=== PATIENT | female | born 1980 | race Caucasian/White ===

== ENCOUNTER 2021-07-24 00:56 | Day surgery (SDC) | payer OTHER, SELFPAY ==
[2021-07-16 11:22] VITALS: BMI 28.3
--- NOTE | 2021-07-16 11:33 | PC.NURSE ---
Report to the Outpatient Waiting Room, entrance under the green pavilion located off [facility], at time 0600 on date 07/24/21. OR Time: 0730. - You and your visitor will be asked a series of questions to screen for COVID 19 for your protection. - A mask is required within the hospital. One visitor will be allowed to accompany the patient into the hospital. Patients visitor will be instructed to remain with patient at all times or leave the building. We will allow the visitor to come back to the postoperative area when patient is ready. Preoperative COVID Testing Requirements: No COVID Test needed if: (proof is required; if not received patient will have Rapid Test prior to entry) - Patient has received COVID Vaccine at least 14 days prior to procedure date or - Patient has positive COVID test result within last 90 days of surgery date. COVID Test needed if above criteria is not met Patients may have clear liquids (water, carbonated beverages, clear teas, apple juice) until 3 hours prior to surgery with a maximum of 20 ounces. - No food from midnight until time of surgery Take the following medications with a SIP of water the morning of surgery: NONE Medications to discontinue per physician: N/A Date to take last dose: N/A Please no make-up, nail guinean, hairspray, perfume, deodorant, or body powder the day of surgery. No jewelry (including any body piercings) or valuables the day of surgery, leave them at home. Please take a shower or bath the night before, or the morning of, surgery with an antibacterial soap. Wear comfortable, loose fitting clothing. - Jewelry must be removed prior to entering the operating room. Rings and piercings that are not removed may be cut off. - The hospital will not accept responsibility for valuables. - Please leave all valuables, including medications, at home the day of surgery. If you are going home after surgery, a licensed patrol driver must drive you home. - NO public transportation without another adult. - We recommend that an adult stay with you for 24 hours following discharge. - We also recommend that you do not drive, make important decision, drink alcoholic beverages, or take any drugs that were not prescribed by your health care provider for at least 24 hours after your discharge time. Follow any additional instructions given to you from your surgeon. Telephone instructions given to CARROLL MALIK and asked if any additional questions and then verbalized understanding. Patient advised to call surgeon office or pre surgery nurse liaison [phone] if any additional questions.
[2021-07-24] VITALS (11 sets, daily range): BP systolic 107–151; BP diastolic 52–76; PULSE 50–84; RESP 16–20; TEMP 36.2–36.7; O2SAT 97–100
--- NOTE | 2021-07-24 05:49 | ECG_ITS ---
Measurements Intervals [place] Rate: 50 P: 17 AK: 142 QRS: 4 QRSD: 89 T: -21 QT: 444 QTc: 407 Interpretive Statements SINUS BRADYCARDIA NO PREVIOUS ECG AVAILABLE FOR COMPARISON Electronically Signed On 07-24-2021 20:48:49 CDT by Karen Maloney M.D.
[2021-07-24] MEDS: LACTATED RINGERS 1,000 ML 30 ML IV CONT ×2 (06:25→11:52)
[2021-07-24 06:46] LABS: Hematocrit 33.6 % (37.0-47.0); Hemoglobin 10.4 g/dL (12.0-15.0)
[2021-07-24 06:54] LABS: Urine Cotinine NEGATIVE
--- NOTE | 2021-07-24 06:56 | WPDHPUPDATE1 ---
History and Physical Update Update Date/Time: 07/24/21 06:56 History and Physical has been reviewed, including an updated exam of the patient. There are NO changes in the patient's condition. Risks, benefits, and alternatives have been discussed and questions answered. Patient agrees to proceed with procedure.
--- NOTE | 2021-07-24 07:08 | W.PM.PROC2 ---
Procedure Note - Detailed Date of Procedure 07/24/21 Pre-op Diagnosis skin laxity Post-op Diagnosis Same Procedure Performed Progressive tension abdominoplasty with suction lipectomy Surgeon Wai Hoskins MD Anesthesia General Findings Tissue removed 2512 grams Lipoaspirate 1500cc Description of Procedure They are here today for abdominoplasty. Previously and again today the risks, benefits, alternatives were discussed in extensive detail. I wanted them to be very realistic about the risks involved as well as expectations. We discussed aftercare and what to monitor for. I was very upfront about the risks of wound breakdown leading to loss of skin, open wounds, and need for additional procedures with permanent abdominal deformity. We discussed DVT/PE risks and management. Made sure answered all of their questions to their satisfaction today and consent was obtained. They were marked in the preoperative holding area with their verification. The patient was taken to the operating room placed supine on the operating table. Anesthesia was provided by anesthesiology. A Gilbert catheter was started. They were prepped and draped in a standard sterile fashion. A surgical time-out was taken. I placed the patient in a flexed position to verify the upper and lower markings would reach. I then placed supine. A thorough abdominal examination was completed. Stab incisions were made and tumescent solution infiltrated. Suction lipectomy was completed based on S.A.F.E. technique based on pre-operative planning, intraoperative observations, and rolling pinch which was in full agreement. This was completed with a 5mm basket cannula. Patient was turned to bilateral lateral decubitus positions during the procedure to optimize outcome with care taken during the turns / positioning. A 10 blade was used to make the upper incision. I continued dissection down to the level of fascia. Elevated just what was necessary for repair of the diastasis. I then again flexed the bed to verify the upper skin flap would reach the lower markings without tension. Once verified I placed her supine once again and a 10 blade used to make the lower incision. I elevated up to level the umbilicus and left the umbilicus intact on a well-vascularized stalk. The intervening tissue was removed. A 2 mm blunt cannula with 0.5% bupivicaine was injected deep to the fascia bilaterally. I plicated the diastasis recti using 0 PDO stratafix barbed suture. This was in 2 separate layers using 2 separate sutures as well. I repaired around the umbilicus leaving plenty of room for well-vascularized stalk of the umbilicus with 2-0 PDS. I also repaired lateral to the rectus using two layers of 0 PDO stratafix. The patient was flexed and starting from superior to inferior began plication using 2-0 Vicryl to obliterate all space in a standard progressive tension fashion. At the umbilicus I marked out the location of the skin and inset this with 3-0 Monocryl and 4-0 Vicryl. I continued the remainder of the plication using 2-0 Vicryl until I reached my lower planned scar line. I trimmed any excess skin of the upper flap making sure this was a tension-free closure. I then approximated using a 3 point suture with 2-0 Vicryl followed by 3-0 stratafix ,running subcuticular 4-0 Monocryl, and tissue glue. Fluffs and an abdominal binder were placed. The patient was transferred to the bed in a flexed position. Awoken and taken to the PACU without difficulty. All instrument and sponge counts were correct at the end of the case. Estimated Blood Loss 75 Drains No Packing No Pathology None sent Complications No immediate complications Condition Stable Disposition PACU
--- NOTE | 2021-07-24 07:20 | P.PNAN_ITS ---
Anes - Initial Pre Proc Eval Procedure: Operation Date: 07/24/21 07:30 Proposed Procedures p Abdominoplasty - Wai Hoskins MD s Liposuction of Abdomen - Wai Hoskins MD Date/Time: 07/24/21 07:20 Surgeon: Wai Hoskins MD Pre Op Diagnosis: skin laxity Patient Data Age: 40 Gender: F Height: 1.65 m Weight: 76.65 kg Last Vital Signs Temp 98.0 F 07/24/21 06:00 Pulse 50 L 07/24/21 06:00 Resp 20 07/24/21 06:00 BP 148/71 H 07/24/21 06:00 Pulse Ox 100 07/24/21 06:00 Allergies Allergy/AdvReac Type Severity Reaction Status Date / Time No Known Allergies Allergy Unverified 07/24/21 06:00 Home Medications Medication Instructions Recorded Confirmed Type docusate sodium 100 mg capsule 100 mg PO DAILY #14 cap 07/08/21 07/24/21 Rx ondansetron 4 mg disintegrating 4 mg PO Q8H #21 tablet 07/08/21 07/24/21 Rx tablet carisoprodol 350 mg tablet 350 mg PO TID PRN #21 tablet 07/09/21 07/24/21 Rx oxycodone-acetaminophen 5 mg-325 1 tablet PO Q6H PRN #30 tablet 07/09/21 07/24/21 Rx mg tablet Laboratory Tests 07/24/21 07/24/21 06:13 06:25 Hgb 10.4 g/dL L g/dL (12.0-15.0) Hct 33.6 % L % (37.0-47.0) Cotinine Negative Patient hx anesthesia problems: none Family hx anesthesia problems: none Results Review: All pre-operative results and documents have been reviewed as part of the pre-operative evaluation. [facility] Past Medical History Medical History (Updated 07/23/21 @ 14:32 by Abdullahi Plasencia MD) Overweight (BMI 25.0-29.9) Surgical History Surgical History History of eye surgery Family History Family History Other Hypertension Social History Social History Smoking status: Never smoker Alcohol intake: never Substance use: never Substance use type: does not use Living arrangements: with family Spiritual care concerns: No Anes - Eval Final PreProcedure Day of Procedure 07/24/21 07:20 Patient weight: overweight Heart: regular rate and rhythm Lungs: clear to auscultation Airway: Mallampati scale class II Neurological: alert and oriented Last oral intake: >/= 8 hours ASA classification: II Emergent: no Anesthetic plan: proceed Anesthesia type and monitoring: general ETT and standard monitoring Results Review: All pre-operative results and documents have been reviewed as part of the pre-operative evaluation. Informed Consent: The patient's anesthetic plan and its attendant risks and benefits were discussed with the patient/family/POA. Questions were solicited and answers provided to the satisfaction of the patient/family/POA.
--- NOTE | 2021-07-24 07:22 | SUR.PREOP ---
0625-SPOKE WITH GRISEL IN CARDIOLOGY RE: EKG-MADE AWARE EKG NEEDED BY 0650-PRIOR TO SURGEON ARRIVAL FOR MARKING. 0705-CARDIOLOGY HAS NOT ARRIVED AND UNABLE TO REACH PER PHONE OPTIONS. 0715-CONTINUE TO BE UNABLE TO REACH CARDIOLOGY AFTER MULTIPLE TRIES OVER SEVERAL MINUTES. 0718-DR. MANZANARES AWARE OF ABOVE. ALSO AWARE OF H/H RESULTS. 0722-CONCRETE TECHNICIAN HERE TO OBTAIN EKG.
[2021-07-24] MEDS: LACTATED RINGERS IRRIG 1,000 ML, LIDOCAINE HCL 1% LOCAL INJ 50 ML, EPINEPHrine HCL INJ ... INFILTRATE (07:30)
[2021-07-24] MEDS: ceFAZolin 2 GM/D5W 50 ML 2 GM/50 ML BAG IVPB (07:30)
[2021-07-24] MEDS: TRANEXAMIC ACID 1,000MG/ISO100 1,000 MG/100 ML BAG 200 MG IVPB (07:45)
[2021-07-24] MEDS: ONDANSETRON INJ 4 MG/2 ML VIAL IV PUSH (13:15)
[2021-07-24] MEDS: oxyCODONE/ACETAMINOPHEN (*CRX) 5-325 MG TABLET 1 TABLET PO (13:39)
[2021-07-24] MEDS: SCOPOLAMINE 1.5 MG PATCH TRANSDERM (14:00)
[2021-07-24] MEDS: diphenhydrAMINE HCl INJ 50 MG/ML VIAL 25 MG IV PUSH (14:00)
== END 2021-07-24 14:50 | disposition home or self-care (01) ==
PROVIDERS: Anesthesiology; Visit Provider Surgery Plastic and Reconstructive Surgery
PROC: (CPT 15830; principal; 2021-07-24 07:30)
PROC: (CPT 15877; 2021-07-24 07:30)
DX: Z41.1 Encounter for cosmetic surgery (principal); L57.4 Cutis laxa senilis
CPT/HCPCS: 15830; 15847; 15877; 80307; 85014; 85018; 93005; A9270; J0171; J0690; J1100; J1170; J1200; J2250; J2405; J2704; J2710; J3010; J7120

== ENCOUNTER 2022-11-06 01:14 | Day surgery (SDC) | payer OTHER, SELFPAY ==
[2022-10-28 13:00] VITALS: BMI 28.8
--- NOTE | 2022-10-28 13:04 | PC.NURSE ---
Report to the Outpatient Waiting Room, entrance under the green pavilion located off [facility], at time 0900 on date 11/06/22. Planned Procedure Time: 1100. Time changes happen often and if your time is changed the preop area will call you the afternoon before. - You and your visitor will be asked to self-screen and do not enter if you have any COVID symptoms. - A mask is optional within the hospital at this time. Patients may have clear liquids (water, carbonated beverages, clear teas, apple juice) until 3 hours prior to surgery with a maximum of 20 ounces. - No food from midnight until time of surgery Take the following medications with a SIP of water the morning of surgery: LEXAPRO, CONTROL PILL DO NOT STOP ANY OF YOUR OTHER PRESCRIPTION MEDICATIONS PRIOR TO SURGERY ?EXCEPT THE FOLLOWING Medications to discontinue per physician: VITAMINS/SUPPLEMENTS Date to take last dose: 11/02/22 Please no make-up, nail icelandic, hairspray, perfume, deodorant, or body powder the day of surgery. No jewelry (including any body piercings) or valuables the day of surgery, leave them at home. Please take a shower or bath the night before, or the morning of, surgery with an antibacterial soap. Wear comfortable, loose fitting clothing. - Jewelry must be removed prior to entering the operating room. Rings and piercings that are not removed may be cut off. - The hospital will not accept responsibility for valuables. - Please leave all valuables, including medications, at home the day of surgery. If you are going home after surgery, a licensed special events driver must drive you home. - NO public transportation without another adult if you receive anesthesia. - We recommend that an adult stay with you for 24 hours following discharge. - We also recommend that you do not drive, make important decision, drink alcoholic beverages, or take any drugs that were not prescribed by your health care provider for at least 24 hours after your discharge time. Follow any additional instructions given to you from your surgeon. If you or anyone in your household have experienced Covid symptoms in the past week, please notify your surgeon or the nurse liaison at the phone number below for possible testing. Telephone instructions given to PT - CARROLL MALIK and asked if any additional questions and then verbalized understanding. Patient advised to call surgeon office or pre surgery nurse liaison [phone] if any additional questions.
[2022-11-06] VITALS (11 sets, daily range): BP systolic 102–161; BP diastolic 56–95; PULSE 62–98; RESP 10–16; TEMP 36.3–36.4; O2SAT 99–100; BMI 29.7
[2022-11-06 10:13] LABS: Urine Cotinine NEGATIVE
--- NOTE | 2022-11-06 10:29 | WPDHPUPDATE1 ---
History and Physical Update Update Date/Time: 11/06/22 10:29 History and Physical has been reviewed, including an updated exam of the patient. There are NO changes in the patient's condition. Risks, benefits, and alternatives have been discussed and questions answered. Patient agrees to proceed with procedure.
--- NOTE | 2022-11-06 10:34 | P.OP_ITS ---
Procedure Note - Detailed Date of Procedure 11/06/22 Pre-op Diagnosis breast ptosis Post-op Diagnosis Same Procedure Performed Bilateral breast mastopexy with Galaflex and fat grafting Surgeon Wai Hoskins MD Anesthesia General Findings Bilateral inverted T superior medial pedicle Bilateral fat grafting 400 cc (200 cc per breast) Description of Procedure She is here today for the above. Previously and again today the risks, benefits, alternatives were discussed in extensive detail. I wanted her to be very realistic about the risks involved as well as expectations. We discussed aftercare and what to monitor for. Made sure answered all of her questions to her satisfaction today and consent was obtained. Marked in the preoperative holding area with their verification. Anesthesia was provided by anesthesiology. She was placed prone on the operating room table with care taken to protect during positioning. A surgical time-out was taken. She was prepped and draped in a standard sterile fashion. 18 guage was utilized to make stab locations. Infiltrated with a tumescent solution. Once adequate time for hemostasis a 3mm multihole fat grafting cannula was utilized to completed suction lipectomy based on pre-operative planning to a closed gravity separation device. One complete the patient was placed supine and prepped and draped again in a standard sterile fashion. Eleven blade was utilized to make a stab incision and infiltrated with low volume tumescent solution. The breast was tailor tacked into place. I tailor tacked the breast into position. Placed her in a sitting position. Verified the nipple-areolar location based on preoperative planning as well as intraoperative observations and measurements in full agreement. She was placed supine. I de-epithelialized the pedicle. I then de-epithelialized the inferior breast tissue to create an autoaugmentation flap based on intercostal sanitary engineering teacher. I elevated medial and lateral tissue flaps as well for planned closure. The autoaugmentation flap was sutured to the chest wall with 2-0 PDS. This was tailor tacked into position and she was placed in a sitting position. The adipose tissue had clearly seperated and was re-injected with a 3mm cannula in multiple plans / passes on power in each breast for the volumes above. Jasmyne were removed to place Galalfex. Galaflex had been soaking on the back table and was trimmed and sutured into placed with 2-0 Vicryl. I closed along the IMF with 2-0 Stratafix. Along the vertical with 2-0 PDS. I closed around the Vinny with 3-0 strata fix. 3-0 Monocryl along the vertical. 3-0 Stratafix along the IMF. I finally closed everything with running subcuticular 4-0 Monocryl and tissue glue. Fluffs, surgical bra, and compression were placed. Estimated Blood Loss 125 Drains No Packing No Pathology None sent Complications No immediate complications Condition Stable Disposition PACU
[2022-11-06] MEDS: LACTATED RINGERS 1,000 ML 30 ML IV CONT ×3 (10:42→17:15)
--- NOTE | 2022-11-06 10:46 | P.PNAN_ITS ---
Anes - Initial Pre Proc Eval Procedure: Operation Date: 11/06/22 11:00 Proposed Procedures p Bilateral Breast Mastopexy with GalaFlex - Wai Hoskins MD s Bilateral Breast Fat Grafting - Wai Hoskins MD Date/Time: 11/06/22 10:46 Surgeon: Wai Hoskins MD Pre Op Diagnosis: breast ptosis Patient Data Age: 42 Gender: F Height: 1.63 m Weight: 78.5 kg Last Vital Signs Temp 36.4 C 11/06/22 08:58 Pulse 62 11/06/22 08:58 Resp 16 11/06/22 08:58 BP 112/78 11/06/22 10:35 Pulse Ox 100 11/06/22 08:58 O2 Del Method Room Air 11/06/22 08:58 Allergies Allergy/AdvReac Type Severity Reaction Status Date / Time No Known Allergies Allergy Unverified 11/06/22 10:31 Home Medications Medication Instructions Recorded Confirmed Type drospirenone (contraceptive) 4 mg 1 tablet PO DAILY 10/28/22 11/06/22 History (28) tablet escitalopram oxalate 10 mg tablet 10 mg PO DAILY 10/28/22 11/06/22 History (Lexapro) multivitamin 1 tablet PO DAILY 10/28/22 11/06/22 History trazodone 50 mg tablet 25 mg PO HS 10/28/22 11/06/22 History Laboratory Tests 11/06/22 09:15 Cotinine Negative Patient hx anesthesia problems: post op nausea/vomiting Family hx anesthesia problems: none Results Review: All pre-operative results and documents have been reviewed as part of the pre- operative evaluation. [facility] Past Medical History Medical History Overweight (BMI 25.0-29.9) Surgical History Surgical History History of eye surgery Family History Family History Other Hypertension Social History Social History Smoking status: Never smoker Alcohol intake: never Substance use: never Substance use type: does not use Living arrangements: with family Spiritual care concerns: No Anes - Eval Final PreProcedure Day of Procedure 11/06/22 10:46 Patient weight: overweight Heart: regular rate and rhythm Lungs: clear to auscultation Airway: Mallampati scale Neurological: alert and oriented Last oral intake: >/= 8 hours ASA classification: II Emergent: no Anesthetic plan: proceed Anesthesia type and monitoring: general LMA and standard monitoring Results Review: All pre-operative results and documents have been reviewed as part of the pre- operative evaluation. Informed Consent: The patient's anesthetic plan and its attendant risks and benefits were discussed with the patient/family/POA. Questions were solicited and answers provided to the satisfaction of the patient/family/POA.
[2022-11-06] MEDS: SCOPOLAMINE 1.5 MG PATCH TRANSDERM (10:50)
[2022-11-06] MEDS: ceFAZolin 2 GM/D5W 50 ML 2 GM/50 ML BAG IVPB (11:00)
[2022-11-06] MEDS: TRANEXAMIC ACID 1,000MG/ISO100 1,000 MG/100 ML BAG 200 MG IVPB (11:00)
[2022-11-06] MEDS: ceFAZolin SODIUM 1 GM VIAL IV PUSH (14:32)
[2022-11-06] MEDS: ONDANSETRON INJ 4 MG/2 ML VIAL IV PUSH (16:04)
[2022-11-06] MEDS: diphenhydrAMINE HCl INJ 50 MG/ML VIAL 12.5 MG IV PUSH (17:26)
== END 2022-11-06 18:22 | disposition home or self-care (01) ==
PROVIDERS: Visit Provider Surgery Plastic and Reconstructive Surgery
PROC: (CPT 19316; principal; 2022-11-06 11:00)
PROC: (CPT 15769; 2022-11-06 11:00)
DX: Z41.1 Encounter for cosmetic surgery (principal); N64.81 Ptosis of breast
CPT/HCPCS: 19316; 15777 ×2; 15771; 15772 ×7; 80307; A9270; J0171; J0690; J1100; J1170; J1200; J1580; J2250; J2405; J2704; J3010; J7120